=== PATIENT | female | born 1945 | race Two or more races ===

== ENCOUNTER → 2024-05-08 06:48 | Outpatient (REF) | payer MEDICARE, OTHER, SELFPAY | LOC: MRI 06:48 | PROVIDERS: ATTENDING PHYSICIAN Orthopaedic Surgery; FAMILY PHYSICIAN Internal Medicine | DX: M16.11 Unilateral primary osteoarthritis, right hip (principal) | CPT/HCPCS: 73721 ==

== ENCOUNTER 2024-06-22 06:22 | Day surgery (SDC) | payer MEDICARE, OTHER, SELFPAY ==
[2024-05-25 14:17] VITALS: BMI 31.9
[2024-05-25 15:00] LABS: Hematocrit 40.7 % (37.0-47.0); Hemoglobin 13.4 g/dL (12.0-16.0); Mean Corp Hgb Conc. 32.9 g/dL (33.0-37.0); Mean Corpuscular Hgb 27.2 pg (27.0-31.0); Mean Corpuscular Volume 82.7 fL (81.0-99.0); Mean Platelet Volume 9.9 fL (7.4-10.4); Platelet Count 220 10^3/uL (130-400); Red Blood Cell Count 4.92 10^6/uL (4.20-5.40); Red Cell Dist. Width 13.9 % (11.5-14.5); White Blood Cell Count 7.3 10^3/uL (4.8-10.8)
[2024-05-25 15:27] LABS: ALT (SGPT) 20 U/L (0-35); AST (SGOT) 24 U/L (14-36); Albumin 4.6 g/dl (3.5-5.0); Alkaline Phosphatase 54 U/L (38-126); Blood Urea Nitrogen 19 mg/dl (7-17); Calcium 9.8 mg/dl (8.4-10.2); Carbon Dioxide 27 mmol/L (22-30); Chloride 103 mmol/L (98-107); Estimated Creatinine Clearance 57 ml/min; Glucose 105 mg/dl (70-99); Potassium 4.7 mmol/L (3.5-5.1); Sodium 143 mmol/L (135-145); Total Bilirubin 0.2 mg/dl (0.2-1.3); Total Protein 7.2 g/dl (6.3-8.2); eGFR > 60.00
[2024-05-26 10:19] LABS: Glycohemoglobin (HgbA1c) 6.7 % (4.0-5.6)
--- NOTE | 2024-06-08 09:19 | VNURNOTE ---
Patient is scheduled for an elective R JOSE CARLOS on 06/22/24- she is a same day patient with Dr Woodard. Spoke with patient prior to surgery. Introduced role of [facility] Liaison. Patient reports that she lives with her spouse in a rancher story home.
There is 1 step to enter.
She has a raised toilet seat, cane, stool. She stated Osmani Barrera advised her she will be provided a rolling walker day of surgery.
PCP is Dr Galindo
Discussed [facility] joint protocol and post surgical plans.
Reviewed that she will have [facility] services initially and will then start outpatient PT.
Patient selects [facility] for home care needs and will go to [facility]. Scheduled for 06/27.
Patient is in agreement with plan and states that her spouse and grandson will be home with her. Referral placed in [facility].
Plan: [facility] per [facility] joint protocol then outpt PT on 06/27
[2024-06-17 11:06] VITALS: BMI 31.9
[2024-06-22] VITALS (15 sets, daily range): BP systolic 134–176; BP diastolic 45–83; PULSE 74; O2SAT 98
[2024-06-22] MEDS: TYLENOL 650 MG PO (07:06)
--- NOTE | 2024-06-22 07:32 | W.DS.TRANS ---
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
-
Discharge Instructions:
Sleep Apnea Risk Low
Discharge Diagnosis/Procedures R JOSE CARLOS Dr Woodard 06/22/24
Diet Diabetic, Carb Controlled
Activity With Walker
Driving Restrictions No driving
Bathing Restrictions OK to Shower
Instructions:
Stand-Alone Forms: SDS Total Hip and Knee D/C
Changes to Home Medications: Yes
Discharge Medications:
DC Medications w/original date entered in [employer]
ascorbic acid (vitamin C) 500 mg tablet (Vitamin C) 500 mg PO DAILY 06/17/24
atorvastatin 10 mg tablet 10 mg PO HS 06/17/24
cetirizine 10 mg tablet (Zyrtec) 10 mg PO HS 06/17/24
cholecalciferol (vitamin D3) 50 mcg (2,000 unit) capsule (Vitamin D3) 50 mcg PO DAILY 06/17/24
cinnamon bark 500 mg capsule (Cinnamon) 1,000 mg PO DAILY 06/17/24
guaifenesin 400 mg tablet 400 mg PO Q4H PRN congestion 06/17/24
levothyroxine 88 mcg tablet (Synthroid) 88 mcg PO DAILY 06/17/24
lisinopril 10 mg tablet 15 mg PO BID 06/17/24
omega3 550 [id number] 250 unit-lutein 2.5 mg-zeaxant 0.5 mg capsule (Eye [place] Advantage) 2 cap PO DAILY 06/17/24
polyvinyl alcohol-povidone (PF) 1.4 %-0.6 % eye drops in a dropperette (Refresh Classic (PF)) 1 drp ophthalmic (eye) PRN PRN dry eye 06/17/24
simethicone 80 mg chewable tablet 80 - 160 mg PO PRN PRN bloating 06/17/24
Saccharomyces boulardii 250 mg capsule (Florastor) 250 mg PO BID #1 cap 06/22/24
acetaminophen 325 mg tablet (Tylenol) 650 mg (2 x 325 mg) PO QID #1 tab 06/22/24
aspirin 325 mg tablet 325 mg PO DAILY blood clot prevention #1 tab 06/22/24
cefadroxil 500 mg capsule 500 mg PO BID infection prevention #14 caps 06/22/24
celecoxib 100 mg capsule 100 mg PO BID Anti-inflammatory #14 caps 06/22/24
dexamethasone 4 mg tablet 4 mg PO BID inflammation #6 tabs 06/22/24
docusate sodium 100 mg capsule (Colace) 100 mg PO BID stool softner #1 cap 06/22/24
magnesium hydroxide 400 mg/5 mL oral suspension (Milk of Magnesia) 30 ml PO HS PRN Constipation #1 mL 06/22/24
ondansetron 4 mg disintegrating tablet 4 mg PO Q6H PRN n/v #20 tabs 06/22/24
oxycodone 5 mg tablet 5 mg PO Q6H PRN 1 tab moderate pain, 2 tabs severe pain #30 tabs 06/22/24
sennosides 8.6 mg tablet (Senokot) 17.2 mg (2 x 8.6 mg) PO BID laxative #2 tabs 06/22/24
tramadol 50 mg tablet 50 mg PO BID hip replacement #30 tabs 06/22/24
Home Medication Changes
Saccharomyces boulardii 250 mg capsule (Florastor) 250 mg PO BID #1 cap 06/22/24
acetaminophen 325 mg tablet (Tylenol) 650 mg (2 x 325 mg) PO QID #1 tab 06/22/24
aspirin 325 mg tablet 325 mg PO DAILY blood clot prevention #1 tab 06/22/24
cefadroxil 500 mg capsule 500 mg PO BID infection prevention #14 caps 06/22/24
celecoxib 100 mg capsule 100 mg PO BID Anti-inflammatory #14 caps 06/22/24
dexamethasone 4 mg tablet 4 mg PO BID inflammation #6 tabs 06/22/24
docusate sodium 100 mg capsule (Colace) 100 mg PO BID stool softner #1 cap 06/22/24
magnesium hydroxide 400 mg/5 mL oral suspension (Milk of Magnesia) 30 ml PO HS PRN Constipation #1 mL 06/22/24
ondansetron 4 mg disintegrating tablet 4 mg PO Q6H PRN n/v #20 tabs 06/22/24
oxycodone 5 mg tablet 5 mg PO Q6H PRN 1 tab moderate pain, 2 tabs severe pain #30 tabs 06/22/24
sennosides 8.6 mg tablet (Senokot) 17.2 mg (2 x 8.6 mg) PO BID laxative #2 tabs 06/22/24
tramadol 50 mg tablet 50 mg PO BID hip replacement #30 tabs 06/22/24
Pending Results: No
[2024-06-22] MEDS: TYLENOL 1000 MG PO (11:20)
[2024-06-22] MEDS: ANCEF 5 IV (11:53)
== END 2024-06-22 12:39 | disposition home or self-care (01) ==
LOC: SDS 06:22
PROVIDERS: ATTENDING PHYSICIAN Orthopaedic Surgery; FAMILY PHYSICIAN Internal Medicine
DX: M16.11 Unilateral primary osteoarthritis, right hip (principal)
CPT/HCPCS: 27130; 36415; 73502; 80053; 83036; 85027; 87070; 93005; 97162; 97530; C1776

== ENCOUNTER → 2025-05-22 10:27 | Outpatient (REF) | payer MEDICARE, OTHER, SELFPAY | LOC: HWWDC 10:27 | PROVIDERS: ATTENDING PHYSICIAN Obstetrics & Gynecology Gynecology; FAMILY PHYSICIAN Internal Medicine | DX: Z12.31 Encounter for screening mammogram for malignant neoplasm of breast (principal) | CPT/HCPCS: 77063; 77067 ==